=== PATIENT | female | born 1975 | race Caucasian/White ===

== ENCOUNTER → 2022-03-25 12:42 | Outpatient (CLI) | payer OTHER, SELFPAY | PROVIDERS: Referring Provider Orthopaedic Surgery; Visit Provider Orthopaedic Surgery | DX: M25.331 Other instability, right wrist (principal) ==

== ENCOUNTER → 2022-04-01 11:14 | Outpatient (CLI) | payer OTHER, SELFPAY ==
--- NOTE | 2022-04-01 | DI.RAD.S_ITS ---
PROCEDURE: [place] WRIST INJECTION MR/CT RT INDICATIONS: Carpal bone instability COMPARISON: [facility] [place], [place], XR WRIST 3+ VIEWS RIGHT, 03/15/2022, 10:24. TECHNIQUE: After informed consent had been obtained, the wrist was examined fluoroscopically, and a site chosen for injection of the wrist from a dorsal approach. Skin was prepped and draped in a sterile fashion and 1% lidocaine infiltrated from the skin down to the articular surface. A hypodermic needle was then introduced into the articular space and a modest amount of contrast medium was instilled confirming intra-articular needle tip placement. This was followed by approximately 4 mL of a dilute gadolinium solution. Needle was removed and dressing was applied. The patient experienced no complications throughout the procedure and left the fluoroscopic suite in no apparent distress. FINDINGS: A single fluoroscopic spot image demonstrates intra-articular location to injected iodinated contrast. IMPRESSION: Successful fluoroscopic-guided administration of dilute Gadolinium solution for wrist MR arthrogram. Please note that and osteophyte was encountered and the radiocarpal compartment was unable to be accessed. Contrast was administered to the midcarpal compartment. Dictated by: Mark Vigil M.D. on 04/01/2022 at 12:08 Approved by: Mark Vigil M.D. on 04/01/2022 at 12:13
--- NOTE | 2022-04-01 | DI.MRI.S_ITS ---
PROCEDURE: MR WRIST RT W CON INDICATIONS: Carpal bone instability TECHNIQUE: After the administration of 3-4 mL of dilute intra-articular Gadolinium contrast into the radiocarpal compartment, coronal T1 spin echo with fat saturation and T2 fast spin echo with fat saturation, axial T1 spin echo and T2 fast spin echo with fat saturation, sagittal T1 spin echo with and without fat saturation through the wrist. COMPARISON: [facility], [place], [place] WRIST INJECTION MR/CT RT, 04/01/2022, 11:27. [facility] [place], [place], XR WRIST 3+ VIEWS RIGHT, 03/15/2022, 10:24. FINDINGS: Image quality: Excellent. Bones and cartilage: Transverse linear hypointense signal is seen at the 1st metacarpal shaft with surrounding osseous edema (image 10 of series 5), which is suspicious for a nondisplaced fracture or repetitive stress injury. Probable mild chronic posttraumatic deformity of the scaphoid. Full-thickness cartilage loss is seen at the radiolunate articulation with subchondral sclerosis as well as subchondral cystic changes and edema. Small osseous protuberance at the dorsal aspect of the lunate may be related to prior trauma or degenerative changes. Degenerative cystic changes are also seen in the proximal pole of the scaphoid and the proximal triquetrum as well as in the distal dorsal aspect of the capitate. There is volar tilting of the lunate. Partial-thickness cartilage loss, subchondral edema, and marginal osteophyte formation is seen in the first metacarpal base. Carpal ligaments: There is full-thickness tearing of the central membranous portion of the scapholunate ligament and suspected partial tearing of the volar band, although the dorsal band appears remain in continuity. Suspected small perforation tear of the central lunotriquetral ligament. The dorsal and volar bands ligament appear to be intact. Contrast material is seen communicating between the midcarpal and radiocarpal compartments. There is mild volar tilting of the pisiform on sagittal images without definite disruption of the pisohamate ligament. Triangular fibrocartilage complex: A large defect is seen within the central triangular fibrocartilage disc. Extravasation of contrast material is seen within the distal radioulnar joint. Tendons and soft tissues: Prominent fluid is seen surrounding the ulnar styloid and extensor carpi ulnaris tendon at the level of the ulnar groove, without significant filling with intra-articular contrast material. There appears to be associated synovial hypertrophy in these locations, which is suspicious for severe tenosynovitis. Fluid within the 2nd and 3rd extensor compartments is most likely related to extravasation during the arthrogram injection. Intra-articular contrast material is seen within the carpal tunnel and extending proximally and distally along the flexor tendons. No flexor tendon tearing is seen. The ulnar nerve appears normal within Guyon's canal. IMPRESSION: 1. Transverse linear hypointensity in the proximal 1st metacarpal shaft with surrounding osseous edema is suspicious for a nondisplaced fracture, which may be secondary to trauma or repetitive stress. Recommend correlation for point tenderness. 2. Mild chronic posttraumatic deformity of the scaphoid and likely the lunate with associated severe degenerative changes that are most prominent at the radiolunate articulation. Volar tilting of the lunate may be related to positioning or volar intercalated segment instability. 3. Full-thickness tearing of the central membranous portion of the scapholunate ligament and probable partial tearing of the volar band. The dorsal band of the scapholunate ligament appears to remain intact. No widening of the scapholunate interval. Communication between the radiocarpal and midcarpal compartments is noted. There is also a suspected small focal perforation tear of the central lunotriquetral ligament. 4. Large full-thickness defect within the central triangular fibrocartilage disc. Extravasation of intra-articular contrast material into the distal radioulnar joint is noted. 5. Prominent soft tissue edema and fluid with synovial hypertrophy at the ulnar aspect of the wrist surrounding the ulnar styloid and extensor carpi ulnaris tendon, which is of uncertain etiology. Findings may be related to severe tenosynovitis versus fluid related to the triangular fibrocartilage tear versus an adventitial bursal collection or resolving hematoma. Dictated by: Mark Vigil M.D. on 04/01/2022 at 13:25 Approved by: Mark Vigil M.D. on 04/01/2022 at 13:50
== END ==
PROVIDERS: Referring Provider Orthopaedic Surgery; Visit Provider Orthopaedic Surgery
DX: M25.331 Other instability, right wrist (principal); S63.591A Other specified sprain of right wrist, initial encounter; R60.9 Edema, unspecified
CPT/HCPCS: 20605; 73222; 77002